=== PATIENT | female | born 1965 | race African-American/Black ===

== ENCOUNTER 2017-05-12 08:46 | Emergency (ER) | payer OTHER ==
[~2017-05-12] VITALS: Ht 162.6 cm; Wt 77.1 kg
[~2017-05-12 08:46] MED LIST: ADVIL LIQUI-GE200 MG PO; HYDROCODONE-AP1 EAC6 PO; IRON325 PO; KEFLEX500 MG PO; LITE COAT ASPI325 MG PO; NOHOMEMEDICATIONS; NORCO 5-325 TA1 EACH PO; ONDANSETRON HCL4 M2 PO; TYLENOL COLD H1 EACH PO; VALIUM5 MG PO; ZYRTEC10 M5 PO
[2017-05-12] MEDS ORDERED: ASPIRIN325 PO (08:54)
== END 2017-05-12 10:08 | disposition home or self-care (01) ==
LOC: ER 08:46
DX: I89.0 Lymphedema, not elsewhere classified (principal); Z85.3 Personal history of malignant neoplasm of breast; Z79.82 Long term (current) use of aspirin

== ENCOUNTER 2017-07-03 17:03 | Emergency (ER) | payer OTHER ==
[~2017-07-03] VITALS: Ht 160 cm; Wt 74.8 kg
[~2017-07-03 17:03] MED LIST changes: +ASPIRIN325 PO
[2017-07-03] MEDS ORDERED: CYCLOBENZAPRINE5 MG PO (18:00)
[2017-07-03 18:07] LABS: URINE BILIRUBIN NEGATIVE (Negative); URINE BLOOD 3+ (Negative); URINE COLOR RED; URINE GLUCOSE-RANDOM* NEGATIVE (Negative); URINE KETONES NEGATIVE (Negative); URINE NITRITE NEGATIVE (Negative); URINE PROTEIN (DIPSTICK) 1+ (Negative); URINE UROBILINOGEN 0.2 E.U./dl (0.2-1.0)
[2017-07-03 18:15] LABS: SQUAMOUS 4-10 Moderate /LPF (0-3)
[2017-07-03 18:17] LABS: AMORPHOUS URATES Few /LPF (None Seen); BACTERIA None Seen /HPF (None Seen); CASTS None Seen /LPF (None Seen); URINE WBC 6-15 Few /HPF (0-5)
[2017-07-03 18:19] LABS: HEMATOCRIT 25.6 % (37.0-47.0); HEMOGLOBIN 8.1 gm/dL (12.0-15.0); MCH 21.3 pg (26.0-34.0); MCHC 31.8 g/dL (28.0-37.0); MCV 67.1 fL (80.0-100.0); RBC 3.81 mil/uL (4.20-5.00); RDW 20.5 % (10.5-14.5); WBC 5.3 thou/uL (4.0-11.0)
[2017-07-03 18:36] LABS: CALCIUM 8.7 mg/dL (8.5-10.1); CREATININE 0.8 mg/dL (0.6-1.0); POTASSIUM 3.8 mmol/L (3.5-5.1)
[2017-07-03] MEDS ORDERED: BACTRIM DS TAB1 EACH PO (18:41)
== END 2017-07-03 18:59 | disposition home or self-care (01) ==
LOC: ER 17:03
PROVIDERS: Physician Assistant
DX: M62.830 Muscle spasm of back (principal); N39.0 Urinary tract infection, site not specified; Z85.3 Personal history of malignant neoplasm of breast; Z98.890 Other specified postprocedural states

== ENCOUNTER 2017-08-18 14:07 | Emergency (ER) | payer OTHER ==
[~2017-08-18] VITALS: Ht 162.6 cm; Wt 77.1 kg
[~2017-08-18 14:07] MED LIST changes: +BACTRIM DS TAB1 EACH PO; +CYCLOBENZAPRINE5 MG PO
[2017-08-18 14:49] LABS: URINE BILIRUBIN NEGATIVE (Negative); URINE BLOOD 1+ (Negative); URINE COLOR YELLOW; URINE GLUCOSE-RANDOM* NEGATIVE (Negative); URINE KETONES NEGATIVE (Negative); URINE NITRITE NEGATIVE (Negative); URINE PROTEIN (DIPSTICK) NEGATIVE (Negative); URINE UROBILINOGEN 0.2 E.U./dl (0.2-1.0)
[2017-08-18 14:56] LABS: SQUAMOUS 0-3 Few /LPF (0-3)
[2017-08-18 14:57] LABS: BACTERIA 1-9 Few /HPF (None Seen); CASTS None Seen /LPF (None Seen); URINE RBC 3-10 Few /HPF (0-2); URINE WBC 0-5 Rare /HPF (0-5)
[2017-08-18] MEDS ORDERED: NAPROSYN500 MG PO (15:51)
[2017-08-18] MEDS ORDERED: TESSALON PERLE100 MG PO (15:58)
== END 2017-08-18 16:16 | disposition home or self-care (01) ==
LOC: ER 14:07
PROVIDERS: Nurse Practitioner
DX: D25.9 Leiomyoma of uterus, unspecified (principal); J06.9 Acute upper respiratory infection, unspecified; Z86.2 Personal history of diseases of the blood and blood-forming organs and certain disorders involving the immune mechanism; Z85.3 Personal history of malignant neoplasm of breast

== ENCOUNTER → 2017-11-03 | Outpatient (CLI) | payer OTHER ==
[~2017-11-03] MED LIST changes: +ADVIL200 M3 PO; +CITRATE OF MAG296 ML PO; +FERROUS SU300 MG/5 M PO; +FLAGYL500 MG PO; +NAPROSYN500 MG PO; +NORFLEX100 MG PO; +SENNA8.6 MG PO; +TESSALON PERLE100 MG PO; +TYLENOL325 MG PO; +VENOFER200 MG/10 IVPB; +ZOFRAN ODT4 MG PO
[2017-11-03 12:00] VITALS: BP 121/70
[2017-11-03 13:20] VITALS: BP 122/81
[2017-11-03 13:30] VITALS: BP 122/81
== END ==
LOC: OPONC 06:16
DX: D64.9 Anemia, unspecified (principal)
CPT/HCPCS: 95000

== ENCOUNTER → 2017-11-09 | Outpatient (CLI) | payer OTHER ==
[2017-11-09 11:40] VITALS: BP 115/56
[2017-11-09 12:42] VITALS: BP 121/45
== END ==
LOC: OPONC 00:45
DX: D64.9 Anemia, unspecified (principal)
CPT/HCPCS: 95000

== ENCOUNTER → 2017-11-23 | Outpatient (CLI) | payer OTHER ==
[2017-11-23 11:55] VITALS: BP 118/49
[2017-11-23 12:55] VITALS: BP 106/54
== END ==
LOC: OPONC 11-11 03:04
DX: D64.9 Anemia, unspecified (principal)
CPT/HCPCS: 95000

== ENCOUNTER 2017-12-01 09:56 | Emergency (ER) | payer OTHER ==
[~2017-12-01] VITALS: Ht 162.6 cm; Wt 77.1 kg
[~2017-12-01 09:56] MED LIST changes: -FERROUS SU300 MG/5 M PO; -FLAGYL500 MG PO; -NORFLEX100 MG PO; -ZOFRAN ODT4 MG PO
[2017-12-01 09:58] VITALS: BP 123/62
[2017-12-01] MEDS ORDERED: NAPROSYN500 MG PO (10:15)
== END 2017-12-01 10:46 | disposition home or self-care (01) ==
LOC: ER 09:56
DX: G56.02 Carpal tunnel syndrome, left upper limb (principal); Z86.2 Personal history of diseases of the blood and blood-forming organs and certain disorders involving the immune mechanism; Z87.891 Personal history of nicotine dependence

== ENCOUNTER → 2017-12-15 | Outpatient (CLI) | payer OTHER ==
[~2017-12-15] MED LIST changes: +FERROUS SU300 MG/5 M PO; +FLAGYL500 MG PO; +NORFLEX100 MG PO; +ZOFRAN ODT4 MG PO
== END ==
LOC: ULTRA 11:56
DX: K59.00 Constipation, unspecified (principal)

== ENCOUNTER 2018-03-17 14:57 | Inpatient (IN) | payer OTHER ==
[~2018-03-17] VITALS: Ht 152.4 cm; Wt 74.8 kg
[~2018-03-17 14:57] MED LIST changes: -FERROUS SU300 MG/5 M PO; -FLAGYL500 MG PO; -NORFLEX100 MG PO; -ZOFRAN ODT4 MG PO
[2018-03-17 15:22] VITALS: BP 88/36
[2018-03-17 15:34] LABS: URINE BILIRUBIN NEGATIVE (Negative); URINE BLOOD TRACE (Negative); URINE CLARITY CLEAR; URINE COLOR YELLOW; URINE GLUCOSE-RANDOM* NEGATIVE (Negative); URINE KETONES NEGATIVE (Negative); URINE LEUKOCYTES-REFLEX NEGATIVE (Negative); URINE NITRITE-REFLEX NEGATIVE (Negative); URINE PROTEIN (DIPSTICK) NEGATIVE (Negative); URINE SPECIFIC GRAVITY 1.015 (1.005-1.035); URINE UROBILINOGEN 0.2 E.U./dl (0.2-1.0)
[2018-03-17 17:28] LABS: CALCIUM 8.4 mg/dL (8.5-10.1); CREATININE 0.7 mg/dL (0.6-1.0); POTASSIUM 4.6 mmol/L (3.5-5.1)
[2018-03-17 18:15] LABS: MCHC 28.6 g/dL (28.0-37.0); WBC 5.2 thou/uL (4.0-11.0)
[2018-03-17 18:17] LABS: MCH 15.2 pg (26.0-34.0); MCV 53.2 fL (80.0-100.0); PLATELET COUNT 203 thou/uL (150-400); RBC 3.04 mil/uL (4.20-5.00); RDW 22.7 % (10.5-14.5)
[2018-03-17 18:19] LABS: HEMATOCRIT 16.2 % (37.0-47.0); HEMOGLOBIN 4.6 gm/dL (12.0-15.0)
[2018-03-17 18:41] LABS: ANISOCYTOSIS 3+; HYPOCHROMASIA 3+; MICROCYTES 3+; POIKILOCYTOSIS 2+
[2018-03-17 18:42] LABS: LARGE PLATELETS SEVERAL; OVALOCYTES 1+; SCHISTOCYTES 2+; TARGET CELLS OCCASIONAL; TEARDROPS 1+
[2018-03-17 19:41] VITALS: BP 115/40
[2018-03-17 19:57] VITALS: BP 115/40
[2018-03-17 20:56] VITALS: BP 120/62; BP 134/73
[2018-03-17 21:09] VITALS: BP 112/49
[2018-03-18] VITALS (8 sets, daily range): BP systolic 96–135; BP diastolic 38–89
[2018-03-18 02:36] LABS: WBC 7.2 thou/uL (4.0-11.0)
[2018-03-18 02:37] LABS: MCH 18.1 pg (26.0-34.0); MCHC 31.1 g/dL (28.0-37.0); MCV 58.1 fL (80.0-100.0); RBC 3.06 mil/uL (4.20-5.00); RDW 30.4 % (10.5-14.5)
[2018-03-18 02:38] LABS: CALCIUM 8.3 mg/dL (8.5-10.1); CREATININE 0.7 mg/dL (0.6-1.0); POTASSIUM 4.2 mmol/L (3.5-5.1)
[2018-03-18 02:40] LABS: HEMATOCRIT 17.8 % (37.0-47.0); HEMOGLOBIN 5.5 gm/dL (12.0-15.0)
[2018-03-18 08:51] LABS: % SATURATION 5 % (20-39); IRON 18 ug/dL (50-170); TIBC 366 ug/dL (250-450)
[2018-03-18 09:11] LABS: ABSOLUTE RETIC COUNT 0.0572 10^6/uL; OBSERVED RETIC COUNT 1.84 % (0.6-2.6)
[2018-03-19 04:00] VITALS: BP 117/61
[2018-03-19 05:49] LABS: HEMATOCRIT 28.9 % (37.0-47.0)
[2018-03-19 05:53] LABS: HEMOGLOBIN 9.1 gm/dL (12.0-15.0)
[2018-03-19] MEDS ORDERED: IRON325 PO (08:25)
[2018-03-19] MEDS ORDERED: FERROUS SU300 MG/5 M PO (08:36)
[2018-03-19 08:42] VITALS: BP 138/69
[2018-03-19 12:43] VITALS: BP 138/69
== END 2018-03-19 15:04 | disposition home or self-care (01) | DRG 760 ==
LOC: ER 14:57 → EROBS 19:22 → 4N 19:22
PROVIDERS: Emergency Medicine; Family Medicine; Hospitalist; Nurse Practitioner Family
PROC: 30233N1 Transfusion of Nonautologous Red Blood Cells into Peripheral Vein, Percutaneous Approach (ICD-10-PCS; principal; 2018-03-17)
DX: D25.9 Leiomyoma of uterus, unspecified (principal); E43 Unspecified severe protein-calorie malnutrition; D50.9 Iron deficiency anemia, unspecified; M54.9 Dorsalgia, unspecified; M41.9 Scoliosis, unspecified; G56.02 Carpal tunnel syndrome, left upper limb; Z85.3 Personal history of malignant neoplasm of breast; Z90.12 Acquired absence of left breast and nipple; Z87.891 Personal history of nicotine dependence
CPT/HCPCS: 10790; 27001

== ENCOUNTER 2018-04-18 21:32 | Emergency (ER) | payer OTHER ==
[~2018-04-18] VITALS: Ht 162.6 cm; Wt 74.8 kg
[~2018-04-18 21:32] MED LIST changes: +FERROUS SU300 MG/5 M PO
[2018-04-18] MEDS ORDERED: NAPROSYN500 MG PO (22:11)
[2018-04-18] MEDS ORDERED: NORFLEX100 MG PO (22:11)
== END 2018-04-18 22:44 | disposition home or self-care (01) ==
LOC: ER 21:32
DX: S46.812A Strain of other muscles, fascia and tendons at shoulder and upper arm level, left arm, initial encounter (principal); D57.3 Sickle-cell trait; Z85.3 Personal history of malignant neoplasm of breast; Z86.2 Personal history of diseases of the blood and blood-forming organs and certain disorders involving the immune mechanism; Z87.891 Personal history of nicotine dependence; X58.XXXA Exposure to other specified factors, initial encounter; Y93.89 Activity, other specified; Y92.89 Other specified places as the place of occurrence of the external cause; Y99.8 Other external cause status

== ENCOUNTER 2018-05-02 09:57 | Emergency (ER) | payer OTHER ==
[~2018-05-02] VITALS: Ht 162.6 cm; Wt 72.6 kg
[~2018-05-02 09:57] MED LIST changes: +NORFLEX100 MG PO
[2018-05-02 10:19] LABS: URINE BILIRUBIN NEGATIVE (Negative); URINE BLOOD 1+ (Negative); URINE CLARITY CLEAR; URINE COLOR YELLOW; URINE GLUCOSE-RANDOM* NEGATIVE (Negative); URINE KETONES NEGATIVE (Negative); URINE LEUKOCYTES-REFLEX NEGATIVE (Negative); URINE NITRITE-REFLEX NEGATIVE (Negative); URINE PROTEIN (DIPSTICK) NEGATIVE (Negative); URINE UROBILINOGEN 0.2 E.U./dl (0.2-1.0)
[2018-05-02 10:29] LABS: BACTERIA-REFLEX 1-9 Few /HPF (None Seen); CASTS None Seen /LPF (None Seen); CRYSTALS None Seen /LPF (None Seen); SQUAMOUS 0-3 Few /LPF (0-3); URINE RBC 0-2 Rare /HPF (0-2); URINE WBC-REFLEX None Seen /HPF (0-5)
[2018-05-02] MEDS ORDERED: ZOFRAN ODT4 MG PO (10:57)
== END 2018-05-02 11:12 | disposition home or self-care (01) ==
LOC: ER 09:57
PROVIDERS: Emergency Medicine
DX: N94.6 Dysmenorrhea, unspecified (principal); R11.2 Nausea with vomiting, unspecified; Z85.3 Personal history of malignant neoplasm of breast

== ENCOUNTER 2018-09-08 22:57 | Emergency (ER) | payer OTHER ==
[~2018-09-08] VITALS: Ht 160 cm; Wt 63.5 kg
[~2018-09-08 22:57] MED LIST changes: +ZOFRAN ODT4 MG PO
[2018-09-09] MEDS ORDERED: FLAGYL500 MG PO (01:44)
[2018-09-09 02:06] VITALS: BP 100/39
== END 2018-09-09 02:07 | disposition home or self-care (01) ==
LOC: ER 22:57
DX: N76.0 Acute vaginitis (principal); B96.89 Other specified bacterial agents as the cause of diseases classified elsewhere; G56.02 Carpal tunnel syndrome, left upper limb; D50.9 Iron deficiency anemia, unspecified; D57.3 Sickle-cell trait; Z85.3 Personal history of malignant neoplasm of breast; Z87.891 Personal history of nicotine dependence

== ENCOUNTER 2018-11-17 15:21 | Emergency (ER) | payer OTHER ==
[~2018-11-17] VITALS: Ht 162.6 cm; Wt 72.6 kg
[~2018-11-17 15:21] MED LIST changes: -LIDOCAINE PAIN1 EACH TOP; -MIRALAX17 GM PO
[2018-11-17] MEDS ORDERED: MIRALAX17 GM PO (16:06)
[2018-11-17] MEDS ORDERED: IRON325 PO (16:06)
[2018-11-17] MEDS ORDERED: LIDOCAINE PAIN1 EACH TOP (16:06)
[2018-11-17] MEDS ORDERED: NORCO 5-325 TA1 EACH PO (16:21)
[2018-11-17 16:57] VITALS: BP 118/45
== END 2018-11-17 16:58 | disposition home or self-care (01) ==
LOC: ER 15:21
DX: G56.02 Carpal tunnel syndrome, left upper limb (principal); M54.2 Cervicalgia; N93.8 Other specified abnormal uterine and vaginal bleeding; M54.6 Pain in thoracic spine; D25.9 Leiomyoma of uterus, unspecified; M41.9 Scoliosis, unspecified; Z85.3 Personal history of malignant neoplasm of breast; Z90.12 Acquired absence of left breast and nipple; Z86.2 Personal history of diseases of the blood and blood-forming organs and certain disorders involving the immune mechanism; Z87.891 Personal history of nicotine dependence

== ENCOUNTER → 2018-11-17 | Outpatient (CLI) | payer OTHER ==
[~2018-11-17] MED LIST changes: +FLAGYL500 MG PO; +LIDOCAINE PAIN1 EACH TOP; +MIRALAX17 GM PO
== END ==
LOC: RAD 14:10
DX: Z12.31 Encounter for screening mammogram for malignant neoplasm of breast (principal)

== ENCOUNTER 2019-04-05 13:17 | Emergency (ER) | payer OTHER ==
[~2019-04-05] VITALS: Ht 162.6 cm; Wt 72.6 kg
[~2019-04-05 13:17] MED LIST changes: +LIDOCAINE PAIN1 EACH TOP; +MIRALAX17 GM PO
[2019-04-05 13:50] LABS: URINE BILIRUBIN NEGATIVE (Negative); URINE BLOOD NEGATIVE (Negative); URINE CLARITY CLEAR; URINE COLOR YELLOW; URINE GLUCOSE-RANDOM* NEGATIVE (Negative); URINE KETONES NEGATIVE (Negative); URINE LEUKOCYTES-REFLEX 1+ (Negative); URINE NITRITE-REFLEX NEGATIVE (Negative); URINE PROTEIN (DIPSTICK) NEGATIVE (Negative); URINE SPECIFIC GRAVITY 1.015 (1.005-1.035); URINE UROBILINOGEN 0.2 E.U./dl (0.2-1.0)
[2019-04-05 14:31] LABS: SQUAMOUS 0-3 Few /LPF (0-3)
[2019-04-05 14:33] LABS: BACTERIA-REFLEX 1-9 Few /HPF (None Seen); CASTS None Seen /LPF (None Seen); CRYSTALS None Seen /LPF (None Seen)
[2019-04-05 14:34] LABS: URINE RBC None Seen /HPF (0-2); URINE WBC-REFLEX 0-5 Rare /HPF (0-5)
[2019-04-05] MEDS ORDERED: VAGISIL CREAM28 G1 TOP (16:19)
[2019-04-05 16:25] VITALS: BP 147/79
== END 2019-04-05 16:26 | disposition home or self-care (01) ==
LOC: ER 13:17
PROVIDERS: Emergency Medicine
DX: N76.0 Acute vaginitis (principal); M41.9 Scoliosis, unspecified; D50.9 Iron deficiency anemia, unspecified; Z85.3 Personal history of malignant neoplasm of breast; Z87.891 Personal history of nicotine dependence

== ENCOUNTER 2019-05-31 16:47 | Inpatient (IN) | payer OTHER ==
[~2019-05-31] VITALS: Ht 162.6 cm; Wt 71.2 kg
[~2019-05-31 16:47] MED LIST changes: +VAGISIL CREAM28 G1 TOP
[2019-05-31 16:48] VITALS: BP 131/53
[2019-05-31 17:32] LABS: MCH 14.4 pg (26.0-34.0); MCHC 26.6 g/dL (28.0-37.0); MCV 53.9 fL (80.0-100.0); RBC 3.31 mil/uL (4.20-5.00); RDW 24.1 % (10.5-14.5); WBC 3.1 thou/uL (4.0-11.0)
[2019-05-31 17:36] LABS: HEMATOCRIT 17.8 % (37.0-47.0); HEMOGLOBIN 4.8 gm/dL (12.0-15.0)
[2019-05-31 17:37] LABS: CALCIUM 8.8 mg/dL (8.5-10.1); CREATININE 0.6 mg/dL (0.6-1.0); POTASSIUM 3.9 mmol/L (3.5-5.1)
[2019-05-31 20:28] VITALS: BP 114/50; BP 119/46
[2019-05-31 20:29] VITALS: BP 139/47
[2019-05-31 20:49] VITALS: BP 139/47
[2019-05-31 21:22] VITALS: BP 145/62
[2019-05-31 23:50] VITALS: BP 114/50; BP 119/46; BP 123/59; BP 145/62
[2019-06-01 00:50] VITALS: BP 125/68
[2019-06-01 05:47] LABS: HEMOGLOBIN 5.6 gm/dL (12.0-15.0)
[2019-06-01 05:48] LABS: HEMATOCRIT 18.9 % (37.0-47.0)
[2019-06-01 05:58] LABS: % SATURATION 6 % (20-39); IRON 21 ug/dL (50-170); TIBC 371 ug/dL (250-450)
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
[2019-06-01 06:26] LABS: FOLIC ACID 14.7 ng/mL (8.6-58.9)
--- NOTE | 2019-06-01 07:46 | NUR ---
PT'S RIGHT FA IV INFILTRATED PULLED IV ACSESS WILL HAVE IV NURSE PLACE IV ACSESS. PT STATES IS HARD STICK. PT ALERT XS4 NO PAIN OR RESP DISTRESS AT THIS TIME. RESTING UNTIL BREAKFAST.
[2019-06-01 08:41] VITALS: BP 118/57
[2019-06-01 13:41] VITALS: BP 116/65; BP 120/70
--- NOTE | 2019-06-01 15:15 | NUR ---
PT ADMITTED RELATED TO ANEMIA. CM REVIEWED CHART AND SPOKE WITH CARE TEAM. CM MET WITH PT AT BEDSIDE THIS DAY. PT IS A&O X4. CM ROLE INTRODUCED. PT INIDCATED SHE LIVES ALONE IN AN APARTMENT WITH 20 STEPS TO ENTER AND NO STEPS INSIDE. 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 PT INDICATED NO HH HX. PT INDICATED THAT SHE PLANS TO RETURN HOME ONCE MEDICALLY STABLE. CM TO FOLLOW INDICATED WITH DC PLANNING.
[2019-06-01 16:38] VITALS: BP 139/85
--- NOTE | 2019-06-01 20:39 | NUR ---
PT GIVEN 1 UNIT OF BLOOD EARLIER WITH NO ADVERSE REACTIONS. PT ALERT XS 4 PLEASANT AND COOPERATIVE WITH CARE.
[2019-06-01 20:55] LABS: HEMATOCRIT 23.6 % (37.0-47.0); HEMOGLOBIN 7.3 gm/dL (12.0-15.0)
[2019-06-01 20:59] VITALS: BP 131/53
[2019-06-02 06:33] VITALS: BP 139/59
--- NOTE | 2019-06-02 07:44 | NUR ---
ASSUMED CARE AT 1900, ASSESSMENT COMPLETED. PT DENIES PAIN, NAUSEA, OR SOB. RECHECK OF LABS SHOWED HGB ABOVE 7. STEADY ON FEET, MOVING AROUND ROOM SAFELY UNDER OWN POWER. IV FLUIDS INFUSING. NO SIGNS OF BLEEDING. PT TOOK SHOWER AROUND MIDNIGHT. NO OTHER CONCERNS, SHIFT REPORT GIVEN AT 0700.
[2019-06-02 08:04] VITALS: BP 122/59
[2019-06-02 10:12] LABS: HEMOGLOBIN 5.7 g/dL (11.1-15.9)
[2019-06-02 13:10] LABS: HEMATOLOGY COMMENTS Teardrops present. (())
[2019-06-02 14:50] LABS: HEMATOCRIT 26.4 % (37.0-47.0); HEMOGLOBIN 8.1 gm/dL (12.0-15.0); MCH 19.8 pg (26.0-34.0)
[2019-06-02 14:53] LABS: MCHC 30.5 g/dL (28.0-37.0); RBC 4.07 mil/uL (4.20-5.00); RDW 36.4 % (10.5-14.5)
[2019-06-02 14:57] LABS: MCV 64.8 fL (80.0-100.0)
[2019-06-02] MEDS ORDERED: COLACE 100 MG100 MG PO (16:12)
[2019-06-02] MEDS ORDERED: ACETAMINOPHEN325 M1 PO (16:12)
[2019-06-02] MEDS ORDERED: IRON325 PO (16:12)
[2019-06-02 16:30] VITALS: BP 134/68
[2019-06-02 18:34] VITALS: BP 134/68
--- NOTE | 2019-06-02 19:38 | NUR ---
Assumed pt care at 7am.Pt in and out of bed with sba.Assessment completed.vss. Dr Estrella rounded on pt and order noted.Cbc report called to Dr Estrella and dc order noted.Pt wanted to stay and eat dinner prior to dc home.Dc summary compiled and reviewed with pt.Rx given and pt dc home in at 1845 with family .
== END 2019-06-02 18:45 | disposition home or self-care (01) | DRG 810 ==
LOC: ER 16:47 → EROBS 19:33 → 4E 19:33
PROVIDERS: Emergency Medicine; Internal Medicine; Nurse Practitioner Acute Care; ADMIT Internal Medicine
PROC: 30233N1 Transfusion of Nonautologous Red Blood Cells into Peripheral Vein, Percutaneous Approach (ICD-10-PCS; principal; 2019-05-31)
DX: D61.818 Other pancytopenia (principal); N93.8 Other specified abnormal uterine and vaginal bleeding; D57.3 Sickle-cell trait; N94.6 Dysmenorrhea, unspecified; D25.9 Leiomyoma of uterus, unspecified; Z85.3 Personal history of malignant neoplasm of breast; Z90.12 Acquired absence of left breast and nipple; Z87.891 Personal history of nicotine dependence; Z80.8 Family history of malignant neoplasm of other organs or systems; Z79.899 Other long term (current) drug therapy
CPT/HCPCS: 10084

== ENCOUNTER → 2019-11-14 | Outpatient (CLI) | payer OTHER, SELFPAY ==
[~2019-11-14] MED LIST changes: +ACETAMINOPHEN325 M1 PO; +COLACE 100 MG100 MG PO
== END ==
LOC: RAD 15:20
DX: Z12.31 Encounter for screening mammogram for malignant neoplasm of breast (principal)

== ENCOUNTER → 2020-04-18 | Outpatient (CLI) | payer OTHER, SELFPAY | LOC: ULTRA 14:49 | PROVIDERS: ATTEND Nurse Practitioner | DX: N85.2 Hypertrophy of uterus (principal); D25.9 Leiomyoma of uterus, unspecified ==

== ENCOUNTER 2020-06-05 14:03 | Emergency (ER) | payer OTHER ==
[~2020-06-05] VITALS: Ht 162.6 cm; Wt 77.6 kg
[2020-06-05 14:28] LABS: URINE BILIRUBIN NEGATIVE (Negative); URINE BLOOD 2+ (Negative); URINE CLARITY CLEAR; URINE COLOR YELLOW; URINE GLUCOSE-RANDOM* NEGATIVE (Negative); URINE KETONES NEGATIVE (Negative); URINE LEUKOCYTES-REFLEX NEGATIVE (Negative); URINE NITRITE-REFLEX NEGATIVE (Negative); URINE PROTEIN (DIPSTICK) NEGATIVE (Negative); URINE UROBILINOGEN 0.2 E.U./dl (0.2-1.0)
[2020-06-05] MEDS ORDERED: NOHOMEMEDICATIONS (14:40)
[2020-06-05 14:44] LABS: ABSOLUTE NEUTROPHILS 5.1 thou/uL (1.4-8.2); BASOPHILS 0.8 % (0.0-2.0); EOSINOPHILS 0.6 % (0.0-3.0); HEMATOCRIT 41.3 % (37.0-47.0); HEMOGLOBIN 14.2 gm/dL (12.0-15.0); LYMPHOCYTES 14.8 % (24.0-44.0); MCHC 34.5 g/dL (28.0-37.0); MCV 89.9 fL (80.0-100.0); MONOCYTES 6.9 % (1.0-8.0); PLATELET COUNT 149 thou/uL (150-400); POLYS 76.9 % (36.0-66.0); RBC 4.59 mil/uL (4.20-5.00); RDW 12.4 % (10.5-14.5); WBC 6.6 thou/uL (4.0-11.0)
[2020-06-05 14:48] LABS: BACTERIA-REFLEX 1-9 Few /HPF (None Seen); CASTS None Seen /LPF (None Seen); CRYSTALS None Seen /LPF (None Seen); SQUAMOUS 4-10 Moderate /LPF (0-3); URINE RBC 3-10 Few /HPF (0-2); URINE WBC-REFLEX None Seen /HPF (0-5)
[2020-06-05 14:55] LABS: CALCIUM 8.5 mg/dL (8.5-10.1); CREATININE 0.7 mg/dL (0.6-1.0); POTASSIUM 3.8 mmol/L (3.5-5.1)
[2020-06-05 15:00] LABS: ALBUMIN 3.4 g/dL (3.4-5.0); TOTAL BILIRUBIN 0.6 mg/dL (0.2-1.0); TOTAL PROTEIN 7.3 g/dL (6.4-8.2)
[2020-06-05 16:24] VITALS: BP 127/62
[2020-06-06] MEDS ORDERED: ULTRAM 50MG TAB50 MG PO (04:18)
== END 2020-06-05 16:24 | disposition home or self-care (01) ==
LOC: ER 14:03
PROVIDERS: Physician Assistant
DX: D21.9 Benign neoplasm of connective and other soft tissue, unspecified (principal); N83.202 Unspecified ovarian cyst, left side; Z79.899 Other long term (current) drug therapy; Z87.891 Personal history of nicotine dependence

== ENCOUNTER 2020-06-06 03:25 | Emergency (ER) | payer OTHER ==
[~2020-06-06] VITALS: Ht 165.1 cm; Wt 77.1 kg
[2020-06-06] MEDS ORDERED: ULTRAM 50MG TAB50 MG PO (04:18)
[2020-06-06 04:41] VITALS: BP 132/95
== END 2020-06-06 04:44 | disposition home or self-care (01) ==
LOC: ER 03:25
DX: D25.9 Leiomyoma of uterus, unspecified (principal); R06.02 Shortness of breath; Z87.891 Personal history of nicotine dependence; Z85.3 Personal history of malignant neoplasm of breast; Z98.890 Other specified postprocedural states

== ENCOUNTER 2021-04-22 21:47 | Emergency (ER) | payer OTHER ==
[~2021-04-22] VITALS: Ht 162.6 cm; Wt 113.4 kg
[~2021-04-22 21:47] MED LIST changes: +ULTRAM 50MG TAB50 MG PO
[2021-04-22 23:21] LABS: URINE BILIRUBIN NEGATIVE (Negative); URINE BLOOD 2+ (Negative); URINE CLARITY SL CLOUDY; URINE COLOR YELLOW; URINE GLUCOSE-RANDOM* NEGATIVE (Negative); URINE KETONES NEGATIVE (Negative); URINE LEUKOCYTES-REFLEX NEGATIVE (Negative); URINE NITRITE-REFLEX NEGATIVE (Negative); URINE PROTEIN (DIPSTICK) NEGATIVE (Negative); URINE UROBILINOGEN 0.2 E.U./dl (0.2-1.0)
[2021-04-22 23:30] LABS: BACTERIA-REFLEX 1-9 Few /HPF (None Seen); CASTS None Seen /LPF (None Seen); MUCUS 0-3 Light strn/LPF (None Seen); SQUAMOUS >10 Many /LPF (0-3); URIC ACID CRYSTALS 4-10 Moderate /LPF (None Seen); URINE RBC 3-10 Few /HPF (NONE SEEN); URINE WBC-REFLEX 0-5 Rare /HPF (0-5)
[2021-04-23] MEDS ORDERED: TYLENOL325 M1 PO (00:55)
[2021-04-23] MEDS ORDERED: IBUPROFEN 800800 MG PO (00:55)
[2021-04-23] MEDS ORDERED: FLEXERIL PO (00:55)
[2021-04-23 01:24] VITALS: BP 144/73
== END 2021-04-23 01:25 | disposition home or self-care (01) ==
LOC: ER 21:47
PROVIDERS: Emergency Medicine
DX: M54.5 Low back pain (principal); Z87.891 Personal history of nicotine dependence; Z85.3 Personal history of malignant neoplasm of breast; X50.0XXA Overexertion from strenuous movement or load, initial encounter; Y93.89 Activity, other specified; Y92.89 Other specified places as the place of occurrence of the external cause; Y99.9 Unspecified external cause status

== ENCOUNTER → 2021-08-05 | Outpatient (CLI) | payer OTHER ==
[~2021-08-05] MED LIST changes: +FLEXERIL PO; +IBUPROFEN 800800 MG PO; +TYLENOL325 M1 PO
== END ==
LOC: RAD 14:26
PROVIDERS: ATTEND Nurse Practitioner
DX: Z12.31 Encounter for screening mammogram for malignant neoplasm of breast (principal); Z85.3 Personal history of malignant neoplasm of breast

== ENCOUNTER 2021-09-02 16:41 | Emergency (ER) | payer OTHER ==
[~2021-09-02] VITALS: Ht 162.6 cm; Wt 93.0 kg
[2021-09-02 16:53] VITALS: BP 131/58
== END 2021-09-02 17:57 | disposition home or self-care (01) ==
LOC: ER 16:41
DX: N99.89 Other postprocedural complications and disorders of genitourinary system (principal); Z53.21 Procedure and treatment not carried out due to patient leaving prior to being seen by health care provider; Z98.890 Other specified postprocedural states; Z90.710 Acquired absence of both cervix and uterus